=== PATIENT | male | born 1935 | race Caucasian/White ===

== ENCOUNTER 2022-11-06 22:10 | Emergency (ER) | payer OTHER ==
[~2022-11-06] VITALS: Ht 170.2 cm; Wt 68.0 kg
[2022-11-06] MEDS ORDERED: IPRATROPIUM BROMIDE 0.5 MG/2.5 ML NEBU NEB ONE (22:15)
[2022-11-06] MEDS ORDERED: MAGNESIUM SULFATE 2 GM in IV DEXTROSE 5% 100 ML IV ONE (22:15)
[2022-11-06] MEDS ORDERED: ALBUTEROL SULFATE 2.5 MG/3 ML NEBU NEB ONE (22:15)
[2022-11-06] MEDS ORDERED: ALBUTEROL SULFATE 2.5 MG/3 ML NEBU ONE (22:20)
[2022-11-06] MEDS ORDERED: IPRATROPIUM BROMIDE 0.5 MG/2.5 ML NEBU ONE (22:21)
--- NOTE | 2022-11-06 22:38 | NUR ---
chest xray at bedside.
--- NOTE | 2022-11-06 22:41 | NUR ---
Respiratory at bedside for respiratory treatment.
[2022-11-06] MEDS ORDERED: MAGNESIUM SULFATE/D5W 200 ML ONE (22:44)
[2022-11-06 22:47] LABS: HEMATOCRIT 40.1 % (36.7-47.1); MEAN CORPUSCULAR HEMOGLOBIN 24.6 uug (23.8-33.4); MEAN CORPUSCULAR VOLUME 79.5 fL (73.0-96.2); PLATELET COUNT (AUTO) 179 K/uL (152-348)
[2022-11-06 22:57] LABS: CARBON DIOXIDE 28 mmol/L (21-32); CHLORIDE 88 mmol/L (98-107); CREATININE 1.6 mg/dL (0.6-1.3); GLUCOSE 175 mg/dL (74-106); UREA NITROGEN, BLOOD 43 mg/dL (7-18)
[2022-11-06] MEDS ORDERED: IV NORMAL SALINE 500 ML IV ONE (23:00)
[2022-11-06 23:09] LABS: ALANINE AMINOTRANSFERASE 47 U/L (16-63); ALKALINE PHOSPHATASE 109 U/L (50-136); ASPARTATE AMINOTRANSFERASE 43 U/L (15-37); BILIRUBIN,DIRECT 0.3 mg/dL (0.0-0.2); BILIRUBIN,TOTAL 0.7 mg/dL (0.2-1.0); TOTAL PROTEIN, SERUM 6.2 g/dL (6.4-8.2)
[2022-11-07] MEDS ORDERED: CEFEPIME HCL 2 G in IV DEXTROSE 5% 100 ML IV ONE ×2
[2022-11-07] MEDS ORDERED: VANCOMYCIN IV 1,000 MG in IV DEXTROSE 5% 250 ML IV ONE ×2
[2022-11-07] MEDS ORDERED: CEFEPIME HCL 1 G VIAL ONE (00:09)
[2022-11-07] MEDS ORDERED: IV NORMAL SALINE 500 ML IV ONE (00:30)
--- NOTE | 2022-11-07 01:00 | NUR ---
Silvio solomon in [facility] - 11/07/22 at 0123 by DEBORAH Patient pulled out IV to R forearm. Placed a 20g to R forearm
--- NOTE | 2022-11-07 01:00 | NUR ---
Patient pulled out 22g to left forearm. Replaced with 20g to right forearm. Infusing Maxapime 2g IV @ 100ml/hr.
[2022-11-07] MEDS ORDERED: BISO5TAB21 PO (01:06)
[2022-11-07] MEDS ORDERED: MIDO5TAB5 PO (01:06)
[2022-11-07] MEDS ORDERED: TIOT18CA3 IH (01:06)
[2022-11-07] MEDS ORDERED: ALBU8HFA4 INH (01:06)
[2022-11-07] MEDS ORDERED: AZEL23SP NS (01:06)
[2022-11-07] MEDS ORDERED: OMEP20TA5 PO (01:06)
[2022-11-07] MEDS ORDERED: FURO-152 PO (01:06)
[2022-11-07] MEDS ORDERED: GLIP5TAB13 PO (01:06)
[2022-11-07] MEDS ORDERED: METF-442 PO (01:06)
[2022-11-07] MEDS ORDERED: CLOP75TA15 PO (01:06)
[2022-11-07] MEDS ORDERED: BUDE10.2 IH (01:06)
[2022-11-07] MEDS ORDERED: CHOL200010 PO (01:06)
[2022-11-07] MEDS ORDERED: EMPA25TA PO (01:06)
[2022-11-07] MEDS ORDERED: MAGN400O6 PO (01:06)
[2022-11-07] MEDS ORDERED: PRED20TA PO (01:06)
[2022-11-07] MEDS ORDERED: ATOR80TA PO (01:06)
--- NOTE | 2022-11-07 01:30 | NUR ---
Patient has brusing to bilateral arms and skin tear to the dorsal surface of left hand. Patient stated he is on plavix.
[2022-11-07] MEDS ORDERED: VANCOMYCIN 1000 MG VIAL ONE (01:44)
[2022-11-07] MEDS ORDERED: VANCOMYCIN IV 200 ML ONE (01:45)
--- NOTE | 2022-11-07 01:56 | NUR ---
Called [facility] for [id number] report. Waiting for call back.
--- NOTE | 2022-11-07 01:59 | NUR ---
Dr. Lee on [id number] call with [place]
--- NOTE | 2022-11-07 02:21 | NUR ---
Patient signed transfer consent.
--- NOTE | 2022-11-07 03:19 | NUR ---
Called [facility] for updates. Patient to be transferred to [facility] and admitting by Dr. Chow. Waiting for call back for room number and ETA strip picker time.
--- NOTE | 2022-11-07 03:32 | NUR ---
Irvin from [facility] called back with transfer info. Patient will be going to [facility] Tele floor room 5103. Call for report is . Accepting MD is Dr Chow. ETA pick with [facility] is [id number].
--- NOTE | 2022-11-07 04:19 | NUR ---
Report given to Tomasz BLAIR.
--- NOTE | 2022-11-07 04:19 | NUR ---
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
--- NOTE | 2022-11-07 04:52 | NUR ---
Patient resting comfortably in bed, eyes closed, no signs of distress noted.
--- NOTE | 2022-11-07 05:10 | NUR ---
Per [facility], patient is stable for transfer per Dr. Lee and Dr. Nicole.
--- NOTE | 2022-11-07 05:38 | NUR ---
Unable to make CD with Chest Xray image. Per Xray charge preparation technician, he was having issues with xray machine and wasn't able to send out image and has contacted IT.
--- NOTE | 2022-11-07 05:41 | NUR ---
Patient picked up via gurney by [facility] for patient transfer to [facility] with personal belongings. Patient in stable condition, no signs of distress noted.
== END 2022-11-07 05:41 | disposition short-term general hospital (02) ==
LOC: ER 22:13
DX: J96.90 Respiratory failure, unspecified, unspecified whether with hypoxia or hypercapnia (principal); J18.9 Pneumonia, unspecified organism; E87.20 Acidosis, unspecified; E87.1 Hypo-osmolality and hyponatremia; E83.42 Hypomagnesemia; I95.9 Hypotension, unspecified; J44.9 Chronic obstructive pulmonary disease, unspecified; I50.9 Heart failure, unspecified; Z95.0 Presence of cardiac pacemaker; Z88.0 Allergy status to penicillin; Z88.6 Allergy status to analgesic agent; Z88.8 Allergy status to other drugs, medicaments and biological substances; Z79.01 Long term (current) use of anticoagulants; Z79.899 Other long term (current) drug therapy; Z20.822 Contact with and (suspected) exposure to COVID-19
CPT/HCPCS: 99291; 96365; 87426; 80076; 80048; 83880; 83735; 85025; 85379; 87040; 84484; 93005; 71045; 94640; 83605 ×2; 96367; 36415; J3475 ×2; J7040 ×2; J0692 ×2; J3370; A4663; J3590